=== PATIENT | female | born 1965 | race Caucasian/White ===

== ENCOUNTER 2016-11-09 06:07 | Emergency (ER) ==
[2016-11-09 06:21] VITALS: BP 154/85; TEMP 97.3; BMI 33.9
[2016-11-09] MEDS ORDERED: SODIUM CHLORIDE 1,000 ML IV STA (06:42)
[2016-11-09] MEDS ORDERED: PHENERGAN 25 MG/ML VIAL 25 MG in SODIUM CHLORIDE 50 ML IV STA (06:42)
--- NOTE | 2016-11-09 06:46 | ED.PDOC ---
General Stated Complaint: tk had vertigo off and on since march--seen by ent-- Time Seen by Physician: 06:15 Mode of Arrival: Walk-In Information Source: Patient, Family Exam Limitations: No limitations Nursing and Triage Documentation Reviewed and Agree: Yes <THERESA DIALLO - Last Filed: 11/09/16 06:44> <ANJEL ROBLEDO - Last Filed: 11/09/16 11:47> ED Provider: [facility] (ANJEL ROBLEDO) Chief Complaint: Dizziness Primary Care Provider: CARLINE AVENDAÑO [facility] (ANJEL ROBLEDO) Neurological Complaint Exam - Dizziness Complaint/Exam Last Known Well: yesterday Onset: Gradual Duration: several hours Symptoms Are: Still present Timing: Intermittent Episodes Lasting: Weeks Initial Severity: Mild Current Severity: Moderate Character: Reports: Head spinning, Room spinning, Dizzy Aggravating: Reports: None Alleviating: Reports: None Associated Signs and Symptoms: Reports: Nausea, Vomiting. Denies: Diaphoresis, Tinnitus, Chest pain, Short of air, Palpitations, Unsteady gait, GI blood loss, Visual changes, Decreased oral intake, Change in medication, Change in diet, OTC meds, Loss of balance Cardiac Risk Factors: Reports: None CVA Risk Factors: Reports: None Related Surgical History: Reports: None JVD Present: No Carotid Bruit Present: No Rectal Heme Positive: No Glascow Coma Scale (see protocol): 16 Nystagmus Present: No Gag Reflex Present: Yes Meningeal Signs Positive: No Focal Weakness: Present: None Focal Sensory Loss: Present: None Gait: Abnormal Heel to Toe Normal: No [place]-Hallpike Test Positive: No Differential Diagnoses: Dysrhythmia, BPPV, Hypovolemia, Meniere's, Metabolic abnormalities Quality Indicator For Non-Traumatic Chest Pain/Syncope: EKG Performed <THERESA DIALLO - Last Filed: 11/09/16 06:44> Review of Systems - Review Of Systems Constitutional: Reports: No symptoms Eyes: Reports: No symptoms Ears, Nose, Mouth, Throat: Reports: No symptoms Respiratory: Reports: No symptoms Cardiac: Reports: No symptoms GI: Reports: Nausea, Vomiting : Reports: No symptoms Musculoskeletal: Reports: No symptoms Skin: Reports: No symptoms Neurological: Reports: No symptoms Endocrine: Reports: No symptoms Hematologic/Lymphatic: Reports: No symptoms All Other Systems: Reviewed and Negative <YOELTHERESA Last Filed: 11/09/16 06:44> Past Medical History - Past Medical History Endocrine: Reports: Unknown Cardiovascular: Reports: Unknown Respiratory: Reports: Unknown Hematological: Reports: Unknown Gastrointestinal: Reports: Unknown Genitourinary: Reports: Unknown Neuro/Psych: Reports: Unknown Musculoskeletal: Reports: Unknown Cancer: Reports: Unknown Last Menstrual Period: 2013 - Surgical History General Surgical History: Reports: Unknown - Family History Family History: Reports: Unknown - Social History Smoking Status: Current every day smoker Hx Substance Use: No Alcohol Screening: None Lives: With family - Immunizations Tetanus Shot up to Date: Yes <THERESA DIALLO Last Filed: 11/09/16 06:44> Physical Exam - Physical Exam Appearance: Well-appearing, No pain distress, Well-nourished Eyes: RAEGAN, EOMI, Conjunctiva clear ENT: Ears normal, Nose normal, Oropharynx normal Neck: Supple Respiratory: Airway patent Cardiovascular: RRR, Pulses normal, No rub, No murmur GI/: Soft, Nontender, No masses, Bowel sounds normal, No Organomegaly Musculoskeletal: Normal strength, ROM intact, No edema, No calf tenderness Skin: Warm, Dry, Normal color Neurological: Alert, Oriented Psychiatric: Affect appropriate, Mood appropriate <THERESA DIALLO Last Filed: 11/09/16 06:44> Physician Notification - Case Discussed Physician Notified: dr robledo Time of Notification: 07:00 <THERESA DIALLO - Last Filed: 11/09/16 06:44> Critical Care Note - Critical Care Note Total Time (mins): 0 <ANJEL ROBLEDO - Last Filed: 11/09/16 11:47> Course - Course Hematology/Chemistry: 11/09/16 06:25 11/09/16 06:25 <ANJEL ROBLEDO - Last Filed: 11/09/16 11:47> - Course Orders, Labs, Meds: Lab Review 11/09/16 11/09/16 06:25 07:30 WBC 10.25 H RBC 5.14 Hgb 13.4 Hct 41.1 MCV 80.0 L MCH 26.1 L MCHC 32.6 RDW Coeff of Yaz 14.6 Plt Count 237 Immature Gran % (Auto) 0.9 Neut % (Auto) 73.2 Lymph % (Auto) 18.4 Waller % (Auto) 5.9 Eos % (Auto) 1.0 Baso % (Auto) 0.6 Immature Gran # (Auto) 0.1 Neut # 7.5 H Lymph # 1.9 Waller # 0.6 Eos # 0.1 Baso # 0.1 Sodium 138 Potassium 3.4 L Chloride 100 Carbon Dioxide 30 Anion Gap 11.4 BUN 21 H Creatinine 0.95 Estimated GFR (MDRD) 62.00 BUN/Creatinine Ratio 22.10 Glucose 224 H Calcium 8.9 Total Bilirubin 0.32 AST 9 L ALT 10 L Alkaline Phosphatase 117 H Total Creatine Kinase 67 Troponin I < 0.0100 Total Protein 7.5 Albumin 3.7 Globulin 3.8 Albumin/Globulin Ratio 0.97 TSH 1.592 Free T4 Pending Urine Color Light Urine Clarity Slightly Urine pH 5.5 Ur Specific [place] 1.010 Urine Protein Negative Urine Glucose (UA) 2+ Urine Ketones Negative Urine Blood Trace-intact Urine Nitrite Negative Urine Bilirubin Negative Urine Urobilinogen 0.2 Ur Leukocyte Esterase Negative Urine Microscopic RBC 0-2 Urine Microscopic WBC 2-5 Ur Squamous Epith Cells 2-5 Urine Bacteria 2+ Orders Category Date Time Status EKG-(ED ONLY) Stat CARDIO 11/09/16 06:41 Completed Allocation Analyst [ED CLUB ATTENDANT APPLIED] .ONCE EMERGENCY 11/09/16 06:48 Active ED IV/MEDIPORT/POWERPORT .ONCE EMERGENCY 11/09/16 06:42 Active CBC W/ AUTO DIFF Stat LAB 11/09/16 06:25 Completed COMPREHENSIVE METABOLIC PANEL Stat LAB 11/09/16 06:25 Completed CREATINE KINASE Stat LAB 11/09/16 06:25 Results FREE T4 (FREE THYROXINE) Stat LAB 11/09/16 06:25 Results THYROID STIMULATING HORMONE Stat LAB 11/09/16 06:25 Results TROPONIN I Stat LAB 11/09/16 06:25 Results URINALYSIS C & S IF INDICATED Stat LAB 11/09/16 07:30 Completed URINE CULTURE Stat LAB 11/09/16 08:16 Received 0.9 % Sodium Chloride [Saline Flush] MEDS 11/09/16 06:42 Active 1 syr IVF PRN PRN Diazepam Syringe [Valium Syringe] MEDS 11/09/16 08:41 Discontinued 2 mg IVP ONCE STA Promethazine HCl [Phenergan 25 mg/ml Vial] MEDS 11/09/16 07:41 Discontinued 25 mg .ROUTE .STK-MED ONE Promethazine HCl [Phenergan 25 mg/ml Vial] 25 mg MEDS 11/09/16 06:42 Discontinued 0.9 % Sodium Chloride [Sodium Chloride] 50 ml IV ONCE Sodium Chloride 0.9% [Sodium Chloride] 1,000 ml MEDS 11/09/16 06:[address] HEAD W/O CONTRAST Stat RADS 11/09/16 06:43 Completed Medications Generic Name Dose Route Start Last Admin Trade Name Freq PRN Reason Stop Dose Admin Sodium Chloride 1 syr 11/09/16 06:42 11/09/16 07:47 Saline Flush IVF 1 syr PRN PRN Administration To flush IV Discontinued Medications Generic Name Dose Route Start Last Admin Trade Name Freq PRN Reason Stop Dose Admin Diazepam 2 mg 11/09/16 08:41 11/09/16 08:49 Valium Syringe IVP 11/09/16 08:42 2 mg ONCE STA Administration Promethazine HCl 25 mg/ Sodium 51 mls @ 75 mls/hr 11/09/16 06:42 11/09/16 07: 48 Chloride IV 11/09/16 07:22 75 mls/hr ONCE STA Administration Sodium Chloride 1,000 mls @ 1,000 mls/hr 11/09/16 06:42 11/09/16 07:48 Sodium Chloride IV 11/09/16 07:41 1,000 mls/hr BOLUS STA Administration (THERESA DIALLO) (ANJEL ROBLEDO) Vital Signs: Temp Pulse Resp BP Pulse Ox 11/09/16 06:08 97.3 F L 92 H 20 154/85 H 97 (THERESA DIALLO) (ANJEL ROBLEDO) Departure <THERESA DIALLO - Last Filed: 11/09/16 06:44> - Departure Time of Disposition: 11:46 (pt was unable to undergo MRI due to clostrophobia) Pt referred to PMD for follow-up: No Disposition Discussed With: Patient <ANJEL ROBLEDO - Last Filed: 11/09/16 11:47> - Departure Disposition: HOME SELF-CARE Discharge Problem: Dizziness Instructions: Vertigo (ED) Condition: Good Allergies/Adverse Reactions: Allergies No Known Allergies Allergy (Unverified 11/09/16 06:21) Home Medications: Ambulatory Orders Glycopyrrolate [Robinul] 1 mg PO TID PRN 11/09/16 Insulin Glargine,Hum.rec.anlog [Nataly Gallegos] 50 unit SQ DAILY 11/09/16 Insulin Lispro [Humalog] 1 unit SQ DIRECTED 11/09/16 Lisinopril 10 mg PO DAILY 11/09/16 Methylprednisolone [Medrol Dosepak] 4 mg PO DIRECTED 11/09/16
[2016-11-09 07:04] LABS: BASOPHILS # (AUTO) 0.1 K/uL (0-0.2); BASOPHILS % (AUTO) 0.6 % (0.0-3.0); EOSINOPHILS # (AUTO) 0.1 K/ul (0.0-0.7); HEMATOCRIT 41.1 % (37.0-47.0); HEMOGLOBIN 13.4 g/dl (12.0-16.0); IMMATURE GRANULOCYTE % (AUTO) 0.9 % (0.0-5.0); LYMPHOCYTES # (AUTO) 1.9 K/uL (0.60-3.4); LYMPHOCYTES % (AUTO) 18.4 (10.0-50.0); MEAN CORPUSCULAR HEMOGLOBIN 26.1 pg (27.0-31.0); MEAN CORPUSCULAR HGB CONC 32.6 (31.8-35.4); MONOCYTES # (AUTO) 0.6 K/uL (0.4-2.0); MONOCYTES % (AUTO) 5.9 (0-10); NEUTROPHILS # (AUTO) 7.5 K/ul (2.0-6.9); NEUTROPHILS % (AUTO) 73.2; PLATELET COUNT 237 10^3/uL (140-440); RED BLOOD COUNT 5.14 10^6/ul (4.20-5.40); WHITE BLOOD COUNT 10.25 K/ul (4.6-10.2)
--- NOTE | 2016-11-09 07:34 | CT ---
EXAM: CT Head HISTORY: Vertigo COMPARISON: None TECHNIQUE: CT head performed without contrast FINDINGS: There is no mass effect, midline shift, or intracranial hemmorhage. Nuñez white different iation is preserved. There is no extra-axial collection. The ventricles, sulci, and basal cisterns are patent and symmetric. There is no depressed calvarial fracture. The mastoid air cells are lucas ar. The visualized paranasal sinuses are clear. There are intracranial atherosclerotic vascular calc ifications. IMPRESSION: No acute intracranial abnormality.
[2016-11-09 07:37] LABS: CREATINE KINASE 67 U/L
[2016-11-09] MEDS ORDERED: PHENERGAN 25 MG/ML VIAL ONE (07:41)
[2016-11-09 08:06] LABS: ALBUMIN 3.7 g/dL (3.4-5.0); ALBUMIN/GLOBULIN RATIO 0.97; ANION GAP 11.4; BILIRUBIN,TOTAL 0.32 mg/dL (0.00-1.20); BUN/CREATININE RATIO 22.1; CALCIUM 8.9 mg/dL (8.2-10.2); CREATININE 0.95 mg/dL (0.60-1.30); POTASSIUM 3.4 mmol/L (3.5-5.10); TOTAL PROTEIN 7.5 g/dL (6.4-8.2)
[2016-11-09 08:12] LABS: BILIRUBIN,URINE Negative (NEGATIVE); KETONES,URINE Negative (NEGATIVE); LEUKOCYTE ESTERASE ,URINE Negative (NEGATIVE); NITRITE,URINE Negative (NEGATIVE); PH,URINE 5.5 (5-9); PROTEIN,URINE Negative (NEGATIVE); URINE, BLOOD Trace-intact (NEGATIVE)
[2016-11-09 08:15] LABS: ADD URINE MICROSCOPIC YES
[2016-11-09 08:16] LABS: BACTERIA,URINE 2+ (NOT PRESENT)
[2016-11-09] MEDS ORDERED: VALIUM SYRINGE IVP STA (08:41)
== END 2016-11-09 11:57 | disposition home or self-care (01) ==
LOC: ED 06:07
DX: R42 Dizziness and giddiness (principal); R11.2 Nausea with vomiting, unspecified; F17.210 Nicotine dependence, cigarettes, uncomplicated; Z79.899 Other long term (current) drug therapy
CPT/HCPCS: 36415; 80053; 81001; 82550; 84439; 84443; 84484; 85025; 87086; 87186; 93005; 93010; 96361; 96365; 96375; 99283